=== PATIENT | female | born 1980 | race Caucasian/White ===

== ENCOUNTER → 2023-02-05 16:05 | Outpatient (CLI) | payer OTHER, MEDICAID, SELFPAY ==
--- NOTE | 2023-02-05 16:07 | DI.ECHO.S_ITS ---
[facility]---------+ [facility] +---------+ : : [address] : [place] : : : : [id number] : : : : Phone: [phone]+ Echocardiogram Report + + :Name: LUDIVINA JONES Study Date: 02/05/2023 Height: 66 in : :[facility] ReadingLocation: Weight: 305 lb : : Gender: Female BSA: 2.4 m2 : :: 1980 Age: 42 yrs BP: 138/91 mmHg: :Reason For Study: Palpitations : :Ordering Physician: LULU, : :KAITLYNN Craven Performed By: Edyta Watts : :Referring: KAITLYNN LAWSON : + + Interpretation Summary The ejection fraction is estimated to be 55-60%. Diastolic parameters suggest probable normal left ventricular diastolic function and normal filling pressures. The right ventricle is normal in size and function. No significant valvular abnormalities. Pulmonary artery pressures cannot be estimated because of the lack of a measurable TR jet velocity. Procedure: A two-dimensional transthoracic echocardiogram with color flow and Doppler was performed. The study quality was technically difficult. There is no prior echocardiogram noted for this patient. A contrast injection of Definity was performed to improve assessment of LV function. The patient was in normal sinus rhythm during the exam. Left Ventricle: The left ventricle is normal in size. The ejection fraction is estimated to be 55-60%. Diastolic parameters suggest probable normal left ventricular diastolic function and normal filling pressures. Right Ventricle: The right ventricle is normal in size and function. Atria: The left atrial size is normal. Right atrial size is normal. There is no Doppler evidence for an interatrial shunt. Mitral Valve: The mitral valve is normal. There is mild mitral annular calcification. There is no mitral valve stenosis. There is no mitral regurgitation noted. Aortic Valve: The aortic valve opens well. There is no aortic valve stenosis. No aortic regurgitation is present. Tricuspid Valve: The tricuspid valve is normal. There is no tricuspid stenosis. There is trace tricuspid regurgitation. Pulmonary artery pressures cannot be estimated because of the lack of a measurable TR jet velocity. Pulmonic Valve: The pulmonic valve is not well visualized. There is no pulmonic valvular stenosis. There is no pulmonic valvular regurgitation. Great Vessels: The aortic root is normal size. The ascending aorta is normal in size. The pulmonary artery is normal size. The IVC is of normal diameter and collapses less than 50% with a sniff. This suggests a right atrial pressure of 8 mm Hg. Pericardium/ Pleura There is no pericardial effusion. There is no pleural effusion. MMode/2D Measurements & Calculations LVIDd: 4.5 cm LVOT diam: 1.9 cm LVIDs: 2.8 cm Ao root diam: 2.9 cm FS: 37.8 % asc Aorta Diam: 3.1 cm IVSd: 0.90 cm LVPWd: 0.90 cm LV newton. diameter/BSA (cm/m^2): 1.9 LV sys. diameter/BSA (cm/m^2): 1.2 LA A2 area: 16.5 cm2 RA long axis: 4.5 cm LA A4 area: 13.2 cm2 RA area: 13.7 cm2 LA length (vol): 4.9 cm RA vol: 35.3 ml LA vol: 37.8 ml RA : 14.8 ml/m2 LA vol index: 15.8 ml/m2 RVD1 (basal): 3.4 cm LVLs ap4: 6.5 cm LVLd ap2: 8.6 cm LVLs ap2: 6.7 cm Doppler Measurements & Calculations Ao V2 max: 156.3 cm/sec LVOT Max Ahmet: 130.5 cm/sec Ao V2 mean: 105.3 cm/sec LV V1 max P.8 mmHg Ao max P.0 mmHg LV V1 VTI: 27.8 cm Ao mean P.0 mmHg HANNAH(I,D): 2.5 cm2 Ao V2 VTI: 31.2 cm HANNAH(V,D): 2.4 cm2 sev ratio: 0.89 HANNAH indexed to BSA (cm^2/m^2): 1.1 MV E max ahmet: 86.4 cm/sec TR max ahmet: 224.8 cm/sec MV A max ahmet: 63.8 cm/sec TR max P.2 mmHg MV E/A: 1.4 PA V2 max: 115.0 cm/sec Med Peak E' Ahmet: 9.9 cm/sec PA V2 mean: 80.1 cm/sec E/E' med: 8.7 PA mean P.0 mmHg Lat Peak E' Ahmet: 13.2 cm/sec PA pr(Accel): 36.3 mmHg E/E' lat: 6.5 E/e' average: 7.6 MV dec time: 0.18 sec SV(LVOT): 78.8 ml AV VR_phl: 0.84 HANNAH(VTI)/BSA_phl: 1.1 Reading Physician:08:25 PM
== END ==
PROVIDERS: Referring Provider Physician Assistant; Visit Provider Physician Assistant
DX: I34.81 Nonrheumatic mitral (valve) annulus calcification (principal); R00.2 Palpitations
CPT/HCPCS: 93306; Q9957